=== PATIENT | female | born 1995 | race Caucasian/White ===

== ENCOUNTER 2017-04-07 10:31 | Emergency (ER) | payer SELFPAY ==
[2017-04-07] MEDS ORDERED: Phenazopyridine 95 MG Tab PO ONE (11:48)
[2017-04-07 12:23] LABS: CHLORIDE,CL 104 mmol/L (98-107); SODIUM,NA 140 mmol/L (136-145)
[2017-04-07 12:35] VITALS: BP 123/82
--- NOTE | 2017-04-08 10:40 | ER ---
Date of Service: 04/07/2017 SUBJECTIVE: [place] presents to emergency room with complaints of lower abdominal pain. The patient states that she was started on Macrobid 100 mg b.i.d. for urinary tract infection approximately 3 days ago. She states that she is on her way back home from her honeymoon and states that at approximately 10 o'clock this morning, she began experiencing severe lower abdominal/bladder pain after urinating. She states that the discomfort was severe enough that she became somewhat diaphoretic and lightheaded as well as nauseated. She states that she did not experience any chest pain or shortness of breath and did not have a loss of consciousness during this event. The patient states the discomfort resolved shortly after arrival here to the emergency room. PAST MEDICAL HISTORY: Anxiety. MEDICATIONS: Klonopin 0.5 mg p.r.n. ALLERGIES: NKDA. PHYSICAL EXAMINATION: General: This is a 22-year-old female patient who is in no acute distress. Vital Signs: Blood pressure is 123/82, pulse rate is 78, temp is 35.5, respiratory rate 16. Skin: Warm, pink, and dry. Head. Lungs: Clear to auscultation. Heart: Regular rate and rhythm. Abdomen: Soft, nontender. There is no hepatosplenomegaly or masses noted. Extremities: Without edema. Neurologic: She is alert, oriented, answers all questions appropriately. Her speech is fluent. Her gait is within normal limits. LABORATORY DATA: WBC is 7.7, hemoglobin is 15.1, platelets are 207. Chemistry; sodium is 140, potassium is 3.9, chloride is 104, bicarb is 29, BUN is 12, creatinine is 0.8. GFR is greater than 60. Glucose is 92, calcium is 8.9. Corrected calcium is 8.74. Total bilirubin is 0.7. AST is 10, ALT is 19, alkaline phosphatase is 55. C-reactive protein is less than 0.2, total protein is 7.9, albumin is 4.2. Urinalysis revealed a specific gravity of 1.020, pH is 7.0. Negative for glucose, ketones, occult blood, nitrites and leukocyte esterase. ASSESSMENT: Abdominal pain, likely secondary to bladder spasm. PLAN: The patient was advised to Azo 1 tablet every 4-6 hours as needed for discomfort. Also, she can take ibuprofen 600 mg every 6 hours as needed as well. She was advised to follow up in the clinic in the next 5 to 7 days if she is not gradually improving. All questions were answered. MWK: 04/08/2017 07:07:55 MODL: 04/08/2017 10:32:13 /[id number]
--- NOTE | 2017-04-13 08:19 | ER ---
Date of Service: 04/07/2017 ADDENDUM REVIEW OF SYSTEMS: The patient denies any fever, chills, chest pain, shortness of breath, hematuria, weakness, or lightheadedness. MWK: 04/11/2017 06:29:30 MODL: 04/11/2017 11:33:29 /[id number]
== END 2017-04-07 13:20 | disposition home or self-care (01) ==
LOC: VM.ED 10:31
DX: R10.30 Lower abdominal pain, unspecified (principal)
CPT/HCPCS: 36415; 74020; 80053; 81001; 81025; 85025; 86140; 99284; A9270